=== PATIENT | female | born 1975 | race Caucasian/White ===

== ENCOUNTER 2017-06-13 23:13 | Observation (INO) | payer MEDICARE, MEDICAID ==
[~2017-06-13] VITALS: Ht 157.5 cm; Wt 50.0 kg
[2017-06-14] LABS: BASOPHILS # (AUTO) 0.05 x10^3/uL (0-0.1); BASOPHILS % (AUTO) 1 % (0-1); EOSINOPHILS # (AUTO) 0.06 x10^3/uL (0-0.4); EOSINOPHILS % (AUTO) 1 % (1-7); LYMPHOCYTES # (AUTO) 1.74 x10^3/uL (1-3.4); LYMPHOCYTES % (AUTO) 32 % (22-44); MD NO; MEAN CORPUSCULAR HEMOGLOBIN 21.7 pg (27.0-34.8); MEAN CORPUSCULAR HGB CONC 31.1 g/dL (32.4-35.8); MEAN CORPUSCULAR VOLUME 69.7 fL (80-100); MEAN PLATELET VOLUME 8.3 fL (7.4-10.4); MONOCYTES # (AUTO) 0.48 x10^3/uL (0.2-0.8); MONOCYTES % (AUTO) 9 % (2-9); NEUTROPHILS # (AUTO) 3.06 x10^3/uL (1.8-6.8); NEUTROPHILS % (AUTO) 57 % (42-75); PLATELET COUNT 245 x10^3/uL (130-400); RED BLOOD COUNT 3.94 x10^6/uL (3.82-5.3); RED CELL DISTRIBUTION WIDTH 16.5 % (9.6-15.2)
[2017-06-14 00:10] LABS: ALBUMIN 3.6 g/dL (3.4-5.0); ANION GAP 9 mmol/L (5-15); CALCIUM 8.4 mg/dL (8.5-10.1); CHLORIDE 111 mmol/L (98-107); CREATININE 0.58 mg/dL (0.55-1.02)
[2017-06-14 00:11] LABS: ACETAMINOPHEN < 2 mcg/mL (10-30); SALICYLATE LEVEL < 1.7 mg/dL (2.8-20.0)
[2017-06-14 00:55] LABS: AMPHETAMINE SCREEN, URINE Negative (Negative); BARBITURATE SCREEN, URINE Negative (Negative); BENZODIAZEPINE SCREEN, URINE Negative (Negative); CANNABINOID SCREEN, URINE Negative (Negative); COCAINE SCREEN, URINE Negative (Negative); METHADONE SCREEN, URINE Negative (Negative); OPIATE SCREEN, URINE Negative (Negative)
[2017-06-14] MEDS ORDERED: ACETAMINOPHEN 325 MG TABLET PO PRN (04:30)
[2017-06-14 04:50] LABS: THYROID STIMULATING HORMONE 3.18 mIU/L (0.358-3.740)
[2017-06-14] MEDS ORDERED: LORazepam 1MG TABLET PO ONE (05:30)
[2017-06-14] MEDS: PLEASE ENTER ALLERGIES MC SCH ×3 (06:00→22:00)
[2017-06-14 09:00] VITALS: BP 138/101
[2017-06-14] MEDS ORDERED: LORazepam 2 MG/ML, 1ML IM PRN ×4 (09:00→13:00)
[2017-06-14] MEDS ORDERED: HALOPERIDOL 5 MG/ML IM PRN ×2 (09:00)
[2017-06-14] MEDS ORDERED: ZIPRASIDONE 20 MG INJ IM PRN ×2 (09:00→13:00)
[2017-06-14] MEDS: SERTRALINE 50MG TABLET PO SCH (19:08)
[2017-06-15] MEDS: PLEASE ENTER ALLERGIES MC SCH ×2 (06:00→14:00)
[2017-06-15 09:15] VITALS: BP 133/89
[2017-06-15] MEDS: SERTRALINE 50MG TABLET PO SCH (09:18)
[2017-06-15] MEDS ORDERED: DIVALPROEX 500 MG TAB.ER.24H PO SCH (21:00)
== END 2017-06-15 16:08 ==
LOC: ED 23:59 → SUATTDRO 06-14 04:19 → 3E 06-14 05:40 → EDBD 06-14 05:40 → EDIP 06-14 05:40
PROVIDERS: ADMIT Hospitalist; ATTEND Hospitalist
DX: R45.851 Suicidal ideations (principal); F32.9 Major depressive disorder, single episode, unspecified; H54.8 Legal blindness, as defined in USA; H91.90 Unspecified hearing loss, unspecified ear; M41.9 Scoliosis, unspecified; D64.9 Anemia, unspecified; Z81.8 Family history of other mental and behavioral disorders; F39 Unspecified mood [affective] disorder
CPT/HCPCS: 36415; 80048; 80307; 80329; 82040; 83540; 83550; 84443; 85025; 93005; 99285; G0378; G0480